=== PATIENT | female | born 1995 | race Caucasian/White ===

== ENCOUNTER 2017-07-19 12:39 | Emergency (ER) | payer BC ==
[2017-07-19 14:08] LABS: ABS Basophils 0.1 10^3/ul (0-0.2); ABS Eosinophils 0.2 10^3/ul (0-0.6); ABS Lymphocytes 2.4 10^3/ul (1.0-4.8); ABS Monocytes 0.3 10^3/ul (0-0.8); ABS Neutrophils 3.2 10^3/ul (1.5-7.7); ABS Nucleated RBC 0 10^3/ul; Eosinophil % 3.2 % (0-6); Hematocrit 36 % (35-47); Lymphocyte % 38.7 % (25-47); Mean Corpuscular HGB Conc 34 g/dl (31-36); Mean Corpuscular Hemoglobin 30 pg (27-31); Mean Corpuscular Volume 88 fL (80-97); Nucleated Red Blood Cells % 0; Platelet Count 203 10^3/ul (150-450); Red Blood Count 4.05 10^6/ul (4.0-5.4); Red Cell Distribution Width 13 % (10.5-15); White Blood Count 6.2 10^3/ul (3.5-10.8)
[2017-07-19 14:13] LABS: INR 1.01 (0.77-1.02)
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
[2017-07-19 14:26] LABS: EGFR Non-African American 122.7 (>60)
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
== END 2017-07-19 15:33 | disposition home or self-care (01) ==
LOC: ED 12:39
DX: R55 Syncope and collapse (principal)
CPT/HCPCS: 36415; 70450; 80053; 82607; 82746; 83540; 83550; 83605; 84484; 84702; 85025; 85610; 99282